=== PATIENT | female | born 1980 | race African-American/Black ===

== ENCOUNTER 2023-06-06 11:34 | Emergency (ER) | payer BC, OTHER ==
[2023-06-06 12:11] VITALS: BP 143/90; PULSE 87; RESP 20; TEMP 98.4; BMI 25.7
[2023-06-06 12:56] LABS: HEMATOCRIT 38.4 % (32.4-45.2); HEMOGLOBIN 12.7 G/dL (10.7-15.3); MCH 30.6 pg (25.7-33.7); MCHC 33.2 g/dl (32.0-36.0); MEAN CELL VOLUME 92.2 fl (80-96); MEAN PLT VOLUME 8.8 fl (7.5-11.1); PLATELET COUNT 246.3 10^3/uL (134-434); RBC 4.17 10^6/uL (3.60-5.2); RDW 14.4 % (11.6-15.6); WHITE BLOOD COUNT 7.3 10^3/uL (4.0-10.8)
[2023-06-06 13:03] LABS: ALBUMIN 4.3 g/dl (3.4-5.0); BILIRUBIN,TOTAL 0.8 mg/dl (0.2-1); CALCIUM 9.1 mg/dl (8.5-10.1); CREATININE 0.8 mg/dl (0.6-1.3); MAGNESIUM 1.8 mg/dL (1.8-2.4); POTASSIUM 3.4 mmol/L (3.5-5.1); TOT PROT 7.3 g/dl (6.4-8.2)
[2023-06-06 13:10] LABS: PLATELET ESTIMATE ADEQUATE
[2023-06-06] MEDS ORDERED: POTASSIUM CHLORIDE ORAL LIQUID 20 MEQ/15 ML ONE (13:39)
[2023-06-06] MEDS: POTASSIUM CHLORIDE ORAL LIQUID 20 MEQ/15 ML PO ONE (13:46)
== END 2023-06-06 13:59 | disposition home or self-care (01) ==
LOC: FER 11:34
DX: O99.891 Other specified diseases and conditions complicating pregnancy (principal); R20.2 Paresthesia of skin; R20.0 Anesthesia of skin; Z3A.01 Less than 8 weeks gestation of pregnancy
CPT/HCPCS: 36415; 70450-TC; 80053; 83735; 84484; 85027; 93005; 99285-25

== ENCOUNTER 2023-07-12 17:35 | Emergency (ER) | payer BC ==
[2023-07-12 17:46] VITALS: PULSE 100; RESP 18; TEMP 98.7; BMI 25.7
[2023-07-12 18:16] VITALS: BP 138/105
[2023-07-12 19:05] LABS: HEMATOCRIT 35.9 % (32.4-45.2); HEMOGLOBIN 11.6 G/dL (10.7-15.3); MCH 29.8 pg (25.7-33.7); MCHC 32.3 g/dl (32.0-36.0); MEAN CELL VOLUME 92.3 fl (80-96); MEAN PLT VOLUME 8.5 fl (7.5-11.1); PLATELET COUNT 208.7 10^3/uL (134-434); RBC 3.89 10^6/uL (3.60-5.2); RDW 15.1 % (11.6-15.6); WHITE BLOOD COUNT 9.4 10^3/uL (4.0-10.8)
[2023-07-12 20:44] LABS: PLATELET ESTIMATE ADEQUATE
== END 2023-07-12 21:18 | disposition left against medical advice (07) ==
LOC: FER 17:35
DX: O20.9 Hemorrhage in early pregnancy, unspecified (principal); Z3A.14 14 weeks gestation of pregnancy
CPT/HCPCS: 36415; 76801-TC; 84702; 85025; 86850; 86900; 86901; 99284-25